=== PATIENT | male | born 1970 | race Caucasian/White ===

== ENCOUNTER 2021-11-19 08:10 | Outpatient (CLI) | payer BC, SELFPAY ==
--- NOTE | ~2021-11-19 | CT_ITS ---
EXAMINATION:CT lung screening DATE: 11/19/2021 09:19 INDICATION: Tobacco use. Current smoker with 60 pack year history. TECHNIQUE: Computed tomography (CT) of the chest was performed without intravenous contrast. Automate d exposure control and iterative reconstruction technique were employed. The dose-length product (DLP ) was 162.79 mGy-cm. COMPARISON: CT abdomen and pelvis 09/28/2017 FINDINGS: There is mild scarring at the lung apices. There is mild emphysema. There is a stable 3 mm nodule in left lower lobe. There are 3 mm and 4 mm nodules in left lower lobe that were not included on prior imaging. There is a 2 mm nodule in left upper lobe. There is a 4 mm nodule in left upper lob e. There is a 3 mm nodule at left major fissure. There is a 2 mm nodule in right middle lobe. There i s a 3 mm nodule in right upper lobe. There are multiple 1-2 mm nodules in the upper lungs. No pleural effusion. The heart size is normal. No pericardial effusion. There is mild bilateral gynecomastia. T here are changes of cholecystectomy. There is mild thoracic spondylosis. There is mild chronic height loss of multiple vertebral bodies. IMPRESSION: 1. Lung-RADS category 2: Benign appearance or behavior. Continue annual screening with noncontrast lo w-dose chest CT in 12 months. Reviewed, dictated and finalized at location A. IMPRESSION: 1. Lung-RADS category 2: Benign appearance or behavior. Continue annual screeni ng with noncontrast low-dose chest CT in 12 months.
--- NOTE | 2021-11-19 12:17 | WPDPFTINT ---
PFT Procedure Performed PFT Procedure Performed Spirometry with Pre/Post Bronchodilator Plethysmography (Lung Vol) Diffusing Cap (DLCO) Flow Vol Loop PFT Interpretation This is a pulmonary function test with pre and post-bronchodilator spirometry, plethysmography and diffusing capacity. The test was performed and results interpreted in accordance with the 2019 and 2005 ATS/ERS Task Force guidelines respectively using the Global Lung Function Initiative-2012 reference equations. Patient demonstrated good effort and cooperation. Reproducibility criteria were met. The quality of the pre bronchodilator spirometry maneuver was Grade B and post bronchodilator spirometry maneuver was Grade A. Findings: Spirometry:The contour the inspiratory expiratory flow tracing are normal. The pre bronchodilator FVC is 5.36 L, 94% predicted. The pre bronchodilator FEV1 is 4.04 L, 91% predicted. The pre bronchodilator FEV1: FVC ratio 75%. The post bronchodilator FVC is 5.40 L, representing 1% increase. The post bronchodilator FEV1 is 4.17 L, representing a 3% increase. The post bronchodilator FEV1: FVC ratio 77%. Plethysmography: The total lung capacity is 7.33 L, 94% predicted. The functional residual capacity is 4.07 L, 101% predicted. The residual volume is 1 point 9 8 L, 88% predicted. New Diffusing capacity: The diffusing capacity unadjusted for hemoglobin and carboxyhemoglobin is 22.9, 71% predicted. The diffusing capacity adjusted for alveolar volume is 3.62, 84% predicted. Impression: The spirometry is normal without evidence of an obstructive abnormality. There is no significant improvement after inhaling a single dose of albuterol. The lung volumes are normal. The diffusing capacity unadjusted for hemoglobin and carboxyhemoglobin is mildly decreased and normalizes when adjusted for alveolar volume. There are no prior studies for comparison
== END 2021-11-19 08:11 | disposition home or self-care (01) ==
PROVIDERS: PCP Family Medicine; Visit Provider Nurse Practitioner Family
DX: Z12.2 Encounter for screening for malignant neoplasm of respiratory organs (principal); J45.909 Unspecified asthma, uncomplicated; F17.210 Nicotine dependence, cigarettes, uncomplicated
CPT/HCPCS: 71271; 94060; 94726; 94729

== ENCOUNTER 2024-11-01 12:54 | Outpatient (CLI) | payer OTHER, SELFPAY ==
--- NOTE | ~2024-11-01 | CT_ITS ---
CT Scan of the Chest without Contrast: Clinical Indication: Lung cancer screening, nicotine dependence Technique: Contiguous sections were acquired throughout the chest without intravenous contrast. Dose reduction technique was used on this scan by utilizing automated exposure control and iterative recon struction technique. The dose-length product (DLP) was 238.08 mGy-cm. COMPARISON: 11/19/2021 Findings: There is no evidence of any significant mediastinal, hilar or axillary lymphadenopathy. The mediastin al soft tissues appear normal. There is no evidence of pleural or pericardial effusion. A few scattered tiny pulmonary nodules unchanged. There is mild emphysema. Images through the upper abdomen reveal no abnormalities. Stable mild compression deformities in the upper thoracic spine. Impression: Lung RADS 2: Benign appearance. 12 month follow-up screening CT advised. Reviewed, dictated and finalized at [facility]. Impression: Lung RADS 2: Benign appearance. 12 month follow-up screening CT advised.
== END 2024-11-01 12:55 | disposition home or self-care (01) ==
LOC: MICIMG 12:55
PROVIDERS: PCP Internal Medicine; Visit Provider Nurse Practitioner Adult Health
DX: Z12.2 Encounter for screening for malignant neoplasm of respiratory organs (principal); Z87.891 Personal history of nicotine dependence
CPT/HCPCS: 71271

== ENCOUNTER 2024-11-21 15:30 | Emergency (ER) | payer OTHER, SELFPAY ==
--- NOTE | ~2024-11-21 | XR_ITS ---
EXAMINATION: XR lumbar spine 2-3V DATE: 11/21/2024 17:05 INDICATION: Back pain TECHNIQUE: Anteroposterior and lateral views of the lumbar spine, and cone-down lateral view of the l umbosacral junction were obtained. COMPARISON: None. FINDINGS: Alignment is normal. Vertebral body heights are normal. Mild disc height loss at T12-L1, L3-L4 and L4 -L5. 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 Cholecystectomy clips in right upper quadrant. IMPRESSION: 1. Mild lumbar and lower thoracic spondylosis. Reviewed, dictated and finalized at location A.
[2024-11-21 15:39] VITALS: BP 105/70; PULSE 86; RESP 20; TEMP 36.8; O2SAT 99
--- OUTSIDE RECORDS SUMMARY | 2024-11-21 16:35 | XMS_ITS | Continuity of Care Document ---
Author Organization [facility] Address [address] [place] [address] [address] [place] [address] Phone Care Team Providers Care Geographic Information Systems Director Name Role Phone [facility] [employer] Unavailable Unavail able Josy Estrada Unavailable Unavailable Advance Directives Directive Yes / No Effective Date File Name No Information Encounters Encounter Description Practice Location Reason(s) For Visit Diagnoses Date Provider Providers Copied on Encounter [facility], [address], [place], [place], [id number], [place] tel:[phone] [facility] No Information 3-[address] [facility]. [address] [facility], [address], [place], [place], [id number] , [place]. tel:[phone] Referring Provider: Jalyn Alvarado, [address], [place], [address]. tel:[phone] g Provider: Josy Estrada, [address] [place] [address], [address]. tel:[phone] Family History Family Member Type Diagnosis Age At Onset No Information Payers Payer name Insurance type Covered alliance party ID Authoriza tion(s) No Information Social History Type Description Quantity Date Captured Comments Sex Male Smoking Status No Information Chief Complaint And Reason For Visit No Information Reason For Referral Reason For Referral No Information History Of Present Illness Encounter Date Complaint History Of Prese nt Illness No Information Functional Status Date Functional Assessmen t No Information Instructions Date Instruction Additional Infor mation No Information Assessments Type Assessment Date No Information Patient Care Teams Name Effective Dates (start - stop) Status Members No Information
--- OUTSIDE RECORDS SUMMARY | 2024-11-21 16:35 | XMS_ITS | Encounter Summary ---
Author Organization [facility] Address [address] [place] [address] Care Team Providers Care Soft Mud Molder Name Role Phone Unavailable Primary Care Provider Unavailabl e Encounter Details Date Type Department Care Team (Late st Contact Info) Description 09/12/[address] 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
--- OUTSIDE RECORDS SUMMARY | 2024-11-21 16:35 | XMS_ITS | Encounter Summary ---
Author Organization [facility] Address [address] [place] [address] Care Team Providers Care Cargo Station Worker Name Role Phone Unavailable Primary Care Provider Unavailabl e Encounter Details Date Type Department Care Team (Late st Contact Info) Description 09/17/2005 Outpatient Historical [facility] [address] [facility] [address] [place] [phone] Adolfo Rowe MD [address] 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
--- OUTSIDE RECORDS SUMMARY | 2024-11-21 16:35 | XMS_ITS | Clinical Summary ---
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
--- OUTSIDE RECORDS SUMMARY | 2024-11-21 16:35 | XMS_ITS | Encounter Summary ---
Author Organization [facility] Address [address] [place] [address] Care Team Providers Care Paddle Dyeing Machine Operator Name Role Phone Unavailable Primary Care Provider Unavailabl e Encounter Details Date Type Department Care Team (Late st Contact Info) Description 09/11/2005 Outpatient Historical [facility] [address] [facility] [address] [place] [phone] Alvaro Montes MD [address] 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
--- OUTSIDE RECORDS SUMMARY | 2024-11-21 16:35 | XMS_ITS | Encounter Summary ---
Author Organization [facility] Address [address] [place] [address] Care Team Providers Care Termite Treater Helper Name Role Phone Unavailable Primary Care Provider Unavailabl e Encounter Details Date Type Department Care Team (Late st Contact Info) Description 09/24/2005 Outpatient Historical [facility] [address] [facility] [address] [place] [phone] Adolfo Rowe MD [address] 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
--- OUTSIDE RECORDS SUMMARY | 2024-11-21 16:35 | XMS_ITS | Continuity of Care Document ---
Author Organization [facility] Address [address] [place] [address] Phone Care Team Providers Care Security Systems Specialist Name Role Phone Administrative, Provider Unavailable Unavail able Allergies, Adverse Reactions, Alerts Substance Reaction Status Criticality No Known Drug Allergies Active No I nformation Procedures Procedure Date Medical Record Copy Medical Record Copy Per Page Supplemental Report Office/outpatient visit,est, mod 2016 X-ray exam Cervical 3 Views Or Less X-ray exam of thoracic 2 views 17 Office/outpatient visit,[facility], [facility] 2016 Advance Directives Directive Yes / No Effective Date File Name No Information Encounters Encounter Description Practice Location Reason(s) For Visit Diagnoses Date Provider Providers Copied on Encounter [facility], [address] [place] [address], [id number], [place] tel:[phone] [email or web address] No Information 8 Administrati ve Provider. [address] [place] [address], [facility] [address], [place], [place], [id number], [place]. tel:[phone] Office/outpa tient visit,est, mod [facility], [address] [place] [address], [id number], tel:[phone] [employer] [facility] Follow Up of cervical & thoracic (chief complaint) Sprain of ligaments of cervical spine, subsequent encounterSprai n of ligaments of thoracic spine, subsequent encounterContu leia of right knee, subsequent encounter Sep-2 Baljeet Bojorquez. [address] [facility], [place], [place], [id number], [place]. tel:[phone] Office/outpa tient visit,new, [facility], [address], [place], [place], [id number], [place] tel:[phone] [facility] Cervical Thoracic (chief complaint) CervicalgiaPai n in thoracic spineSprain of ligaments of cervical spine, initial encounterHeada cheSprain of ligaments of thoracic spine, initial encounterContu leia of right knee, initial encounter Sep-0 Baljeet Bojorquez. [address] [facility], [address], [place], [place], [id number], [place]. tel:[phone] Family History Family Member Type Diagnosis Age At Onset Father Problem (finding) stroke Payers Payer name Insurance type Covered constitution party ID Authoriza tion(s) No Information Social History Type Description Quantity Date Captured Comments Sex Male Smoking Status No Information Chief Complaint And Reason For Visit No Information Reason For Referral Reason For Referral No Information Plan Of Treatment Date Type Action Status Referral Ordered: CT scan thoracic spine WO Contrast Appointment date/timeframe: 04/29/2017 ordered Referral Ordered: X-ray exam of thoracic 2 views ordered Referral Ordered: X-ray exam Cervical 3 Views Or Less ordered History Of Present Illness Encounter Date Complaint History Of Prese nt Illness Follow Up of cervical & thoracic Cervical Thoracic patient compla ins of cervical and thoracic pain Functional Status Date Functional Assessmen t No Information Instructions Date Instruction Additional Infor mation No Information Assessments Type Assessment Date No Information Patient Care Teams Name Effective Dates (start - stop) Status Members No Information
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
--- OUTSIDE RECORDS SUMMARY | 2024-11-21 16:35 | XMS_ITS | Encounter Summary ---
Author Organization [facility] Address [address] [place] [address] Care Team Providers Care Shell Grader Name Role Phone Unavailable Primary Care Provider Unavailabl e Encounter Details Date Type Department Care Team (Late st Contact Info) Description 09/10/[address] [facility] [address] 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
--- OUTSIDE RECORDS SUMMARY | 2024-11-21 16:36 | XMS_ITS | Clinical Summary ---
Author Organization [facility] Address [address] [place] [address] Phone Care Team Providers Care Teacher Selection Specialist Name Role Phone Orlando Stokes MD Primary Care Provider [phone] Lencho Luis MD Unavailable Allergies No known active allergies Medications albuterol 108 (90 Base) MCG/ACT Aerosol Solution 2 PUFFS EVERY 4 TO 6 HRS NEEDED 5 Active amLODIPine (NORVASC) 10 MG Tablet Take 10 mg by mouth daily. 5 Active atorvastatin (LIPITOR) 20 MG Tablet Take 20 mg by mouth daily. 5 Active diclofenac (VOLTAREN) 75 MG Tablet Delayed Response Take 75 mg by mouth 2 times daily. 5 Active Trelegy Ellipta 100-62.5-25 MCG/ACT AEROSOL POWDER, BREATH ACTIVATED INHALE 1 PUFF BY INHALATION ROUTE DAILY 5 Active primidone (MYSOLINE) 50 MG Tablet Take 50 mg by mouth 2 times daily. 5 Active sertraline (ZOLOFT) 100 MG Tablet Take 100 mg by mouth daily. 5 Active sildenafil citrate (VIAGRA) 100 MG Tablet TAKE 1 TABLET BY MOUTH 1 HOUR BEFORE NEEDED (MAX 1 TABLET DAILY) 5 Active traMADol (ULTRAM) 50 MG Tablet Take 50 mg by mouth 3 times daily. 5 Active TraMADol HCl 200 MG TABLET SR 24 HR Take 1 Tablet by mouth daily. 5 Active testosterone cypionate (DEPO-TESTOSTER ONE) 200 MG/ML Solution Active tamsulosin (FLOMAX) 0.4 MG Capsule Take 1 Capsule by mouth daily. 30 Capsule 3 5 Active Encounters Date Type Department Care Team Description 11/02/2024 3:00 PM CDT Office Visit [facility] [address] [place] [address] Lencho Luis MD Benign prostatic hyperplasia with urinary hesitancy (Primary Dx); Peyronie's disease Discharge Disposition: Discharged to home or Selfcare 11/02/2024 Travel 09/25/2024 Transcribe Orders [facility] Scheduling [address] [place] [address] Orlando Stokes MD Tobacco abuse (Primary Dx) from Last 3 Months Immunizations Immunization Administration Dates Next Due Covid-19, Mrna, Lnp-s, Pf, 30 Mcg/0.3 Ml Dose (P fizer) 06/03/2021 Influenza Vaccine, Quadrivalent, PF 05/20/2022 TDAP Vaccine 05/16/2015 Social History Tobacco Use Types Packs/Day Years Used Date Smoking Tobacco: Former Cigarettes Smokeless Tobacco: Never Tobacco Cessation:Counseling Given: Not Answered Alcohol Use Standard Drinks/Week Comments Yes 0 (1 standard drink = 0.6 oz pur e alcohol) Rare Sexually Active Control Partners Comments Not Currently Sex and Gender Information Value Date Recorded Sex Assigned at Not on file Legal Sex Male 9:48 PM CDT Gender Identity Not on file Sexual Orientation Not on file Last Filed Vital Signs Vital Sign Reading Time Taken Comments Blood Pressure 123/80 11/02/2024 3:06 PM CDT Pulse 94 11/02/2024 3:06 PM CDT Temperature - - Respiratory Rate 16 11/02/2024 3:06 PM CDT Oxygen Saturation 97% 11/02/2024 3:06 PM CDT Inhaled Oxygen Concentration - - Weight 100.2 kg (221 lb) 11/02/2024 3:06 PM CDT Height 188 cm (6' 2 ) 11/02/2024 3:06 PM CDT Body Mass Index 28.37 11/02/2024 3:06 PM CDT Plan of Treatment Upcoming Encounters Date Type Department Care Team (Late st Contact Info) Description 12/07/2024 2:00 PM CDT Telemedicine [facility] [address] [place] [address] Lencho Luis MD [address] [place] [address] Health Maintenance Due Date Last Done Comments Hepatitis C Virus (HCV) Screening 1970 Hepatitis B Immunization (1 of 3 - 19+ 3-dose series) 11/15/1990 Colonoscopy 11/15/2016 Colorectal Cancer Screening 11/15/2016 Cologuard 11/15/2021 Immunochemical Fecal Occult Blood 11/15/2021 Pneumococcal Immunization (50+ years) (1 of 1 - PCV) 11/15/2021 Zoster Immunization (1 of 2) 11/15/2021 Influenza Immunization (#1) 2024 05/20/2022 SARS-COV-2 Immunization ( - season) 2024 05/20/2022, 01/01/2022, 06/03/2021, Additional history exists Td Immunization Every 10 Years (Adults With 1 Tdap) 05/16/2025 05/16/2015 Respiratory Syncytial Virus (RSV) Immunization (Adult) (1 - 1-dose 75+ series) 11/15/2046 TdaP Immunization Discontinued 05/16/2015 Meningococcal Immunization (ACWY) Aged Out No longer eligible based on patient's age to complete this topic Rotavirus Immunization Aged Out No lo nger eligible based on patient's age to complete this topic Insurance [facility] Care Teams Teacher Selection Specialist Relationship Specialty Start Date End Date Orlando Stokes MD [address] [place] [address] PCP - General Internal Medicine 11/02/24 Lencho Luis MD [address] [address] Consulting Physician Urology 11/02/24
--- OUTSIDE RECORDS SUMMARY | 2024-11-21 16:46 | XMS_ITS | Continuity of Care Document ---
Author Organization [facility] Address [address] [place] [address] Phone Care Team Providers Care Umbrella Mender Name Role Phone Administrative, Provider Unavailable Unavail able Allergies, Adverse Reactions, Alerts Substance Reaction Status Criticality No Known Drug Allergies Active No I nformation Procedures Procedure Date Medical Record Copy Medical Record Copy Per Page Supplemental Report Office/outpatient visit,est, mod 2016 X-ray exam Cervical 3 Views Or Less X-ray exam of thoracic 2 views 17 Office/outpatient visit,[facility], [facility] [place] Advance Directives Directive Yes / No Effective Date File Name No Information Encounters Encounter Description Practice Location Reason(s) For Visit Diagnoses Date Provider Providers Copied on Encounter [facility], [address] [place] [address], [id number], [place] tel:[phone] [employer] No Information 8 Administrati ve Provider. [address] [place] [address], [facility], [place], [place], [id number], [place]. tel:[phone] Office/outpa tient visit,est, mod [facility], [address] [place] [address], [id number], tel:[phone] [facility] Follow Up of cervical & thoracic (chief complaint) Sprain of ligaments of cervical spine, subsequent encounterSprai n of ligaments of thoracic spine, subsequent encounterContu leia of right knee, subsequent encounter Sep-2 Baljeet Bojorquez. [address] [facility], [address], [place], [place], [id number], [place]. tel:[phone] Office/outpa [place]ient visit,new, [facility], [address], [place], [place], [id number], [place] tel:[phone] [facility] Cervical Thoracic (chief complaint) CervicalgiaPai n in thoracic spineSprain of ligaments of cervical spine, initial encounterHeada cheSprain of ligaments of thoracic spine, initial encounterContu leia of right knee, initial encounter Sep-0 Baljeet Bojorquez. [address] [facility], [address], [place], [place], [id number], [place]. tel:[phone] Family History Family Member Type Diagnosis Age At Onset Father Problem (finding) stroke Payers Payer name Insurance type Covered republican ID Authoriza tion(s) No Information Social History [...]
--- OUTSIDE RECORDS SUMMARY | 2024-11-21 16:46 | XMS_ITS | Continuity of Care Document ---
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 [address] [facility], [address], [place], [place], [id number] , [place]. tel:[phone] Referring Provider: Jalyn Alvarado, [address], [place], [address]. tel:[phone] g Provider: Josy Estrada, [address] [place] [address], [address]. tel:[phone] Family History Family Member Type Diagnosis Age [...]
--- NOTE | 2024-11-21 16:58 | ED.GENADULT ---
HPI - General Adult General Chief complaint: Back Pain/Injury Stated complaint: BACK PAIN Time Seen by Provider: 11/21/24 16:02 History of Present Illness HPI narrative: 54-year-old male presenting to the emergency department for evaluation for acute lower back pain. Patient does have a prior history of thoracic back pain secondary to a work injury. Patient states this morning he was putting on his boots when he felt a pop in his lower back. Patient describes pain in the thoracic spine that does not radiate to his legs. Patient denies any loss of bowel bladder control. Patient denies any numbness or weakness of lower extremities. Patient did take tramadol for chronic pain this morning and did get 8 of IV morphine by EMS. Related Data Home Medications ?Medication ?Instructions ?Recorded ?Confirmed ?Last Taken ?Type fluticasone fur. 100 mcg-umeclid 1 inh inhalation DAILY 09/20/22 06/22/23 Unknown History 62.5 mcg-vilant 25 mcg inhalat.powder (Trelegy Ellipta) sertraline 100 mg tablet 100 mg PO DAILY 06/22/23 06/22/23 Unknown History Allergies Allergy/AdvReac Type Severity Reaction Status Date / Time No Known Allergies Allergy Verified 11/21/24 16:14 Review of Systems Review of Systems: All systems reviewed & are unremarkable except as noted in HPI and below PMFSH Past Medical History Medical History Asthma Bilateral conjunctivitis 03/04/2016 Bursitis of left elbow 04/06/2016 Chronic back pain Chronic dermatitis Left side of corner of mouth - 04/28/2017 DJD of shoulder Dyslipidemia Erectile dysfunction Erythema of forearm left arm - 2015 Essential (primary) hypertension Lumbar pain 2013 - right upper area Microscopic hematuria 2012 Right shoulder pain Vitamin D deficiency Surgical History Surgical History History of appendectomy 1982 History of carpal tunnel release of both wrists 2004 History of cholecystectomy 2015 History of cystoscopy History of elbow surgery left 1987 History of right knee surgery 2017 History of shoulder surgery b/l -2005 Family History Family History Father Family history of coronary artery disease Other Cerebrovascular accident Diabetes mellitus Family history of malignant neoplasm Social History Social History Smoking packs per day: 1.5 Smoking cigarettes per day: 30.0 Years smoked: 40 Smoking pack-years: 60.00 Smoking status: Current every day smoker Tobacco type: cigarettes Additional smoking assessment comments: smokes 1 pack a day Alcohol intake: current Alcohol use details: consumes 12 beers monthly Substance use: never Substance use type: does not use Lack of Transportation: No Lack of Food: Never True Current Housing: I Have Housing Concerned About Future Housing: No Difficulty Paying Gas/Electric Bills: No Difficulty Paying for Meds: No Currently Unemployed: No Difficulty w/ Childcare or Family Care: No Living arrangements: alone Occupation/Education: occupation Additional occupation/education comments: 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 EYES: PERRLA/EOMI, conjunctivae clear. NOSE: Normal no drainage EARS:TMS clear with good light reflex. THROAT: Pharynx clear, no exudate. NECK: Supple. No adenopathy, no masses. RESPIRATORY: Airway patent, respirations nonlabored. Clear to auscultation bilaterally, no rales, rhonchi, wheezing. CARDIOVASCULAR: Regular rate and rhythm without murmurs rubs or gallops. ABDOMINAL: Soft, nontender, nondistended, normal bowel sounds MUSCULOSKELETAL: No deformity or step-off of lumbar spine, mild midline tenderness to palpation, additional paraspinal muscular tenderness to palpation NEURO: Alert. Cranial nerves II through XII intact. Good gait. Good coordination SKIN: Warm, dry. Normal Color Course Vital Signs Vital signs: Vital Signs Temperature 98.3 F 11/21/24 15:39 Pulse Rate 86 11/21/24 15:39 Respiratory Rate 20 11/21/24 15:39 Blood Pressure 105/70 11/21/24 15:39 Pulse Oximetry 99 11/21/24 15:39 Oxygen Delivery Room Air 11/21/24 15:39 Temperature 98.3 F 11/21/24 15:39 Pulse Rate 95 11/21/24 17:53 Respiratory Rate 20 11/21/24 17:53 Blood Pressure 117/74 11/21/24 17:53 Pulse Oximetry 100 11/21/24 17:53 Oxygen Delivery Room Air 11/21/24 15:39 Medical Decision Making MDM Narrative Medical decision making narrative: 54-year-old male presents to the emergency department for evaluation for acute lower back pain. Patient is neurologically intact with no associated numbness or weakness. X-ray shows no acute fracture dislocation. Patient was treated with p.o. [place], IV Toradol and p.o. Flexeril. Patient will be discharged home with p.o. [place], p.o. naproxen and p.o. Flexeril. Differential Diagnosis Differential Diagnosis: Muscular strain, compression fracture, transverse process fracture Vital Signs Vital Signs: Vital Signs Temperature 98.3 F 11/21/24 15:39 Pulse Rate 86 11/21/24 15:39 Respiratory Rate 20 11/21/24 15:39 Blood Pressure 105/70 11/21/24 15:39 Pulse Oximetry 99 11/21/24 15:39 Oxygen Delivery Room Air 11/21/24 15:39 Temperature 98.3 F 11/21/24 15:39 Pulse Rate 95 11/21/24 17:53 Respiratory Rate 20 11/21/24 17:53 Blood Pressure 117/74 11/21/24 17:53 Pulse Oximetry 100 11/21/24 17:53 Oxygen Delivery Room Air 11/21/24 15:39 Discharge Plan Discharge Clinical Impression: Back pain Patient Disposition: Home, Self-Care Condition: Stable Instructions: Antibiotic Form, Low Back Strain (ED) Additional Instructions: Naproxen as directed for pain control. Flexeril for muscle spasm. [place] as needed for additional pain control. Close follow-up with your primary care physician. Patient Language: [place] Island[place] Prescriptions: New naproxen 500 mg tablet 500 mg PO BID 7 Days Qty: 14 0RF cyclobenzaprine 10 mg tablet 10 mg PO BID PRN (Reason: muscle spasm) Qty: 14 0RF hydrocodone-acetaminophen 5-325 mg tablet 1 tablet PO Q12H PRN (Reason: pain) Qty: 14 0RF No Action Trelegy Ellipta 100-62.5-25 mcg blister with device 1 inh inhalation DAILY albuterol sulfate 90 mcg/actuation HFA aerosol inhaler 2 inh inhalation Q4-6H PRN (Reason: shortness of breath or wheezing) Qty: 3 1RF sildenafil 100 mg tablet 100 mg PO DAILY PRN (Reason: sexual activity) Qty: 18 1RF Rx Instructions: administer 30 minutes to 4 hours before activity amlodipine 10 mg tablet 10 mg PO DAILY Qty: 90 1RF atorvastatin 20 mg tablet 20 mg PO QHS Qty: 90 1RF primidone 50 mg tablet 50 mg PO QHS Qty: 90 1RF tramadol 50 mg tablet 50 mg PO BID PRN (Reason: pain) Qty: 180 0RF tramadol 200 mg tablet, ER multiphase 24 hr 200 mg PO DAILY Qty: 90 0RF sertraline 100 mg tablet 100 mg PO DAILY Follow-up/Referrals: Kike,Felice Echeverria MD [Primary Care Provider] -
[2024-11-21] MEDS: HYDROcodone/acetaminophen (*CRX) 7.5-325 MG TABLET 1 TAB PO (17:11)
[2024-11-21] MEDS: CYCLOBENZAPRINE HCL 10 MG TABLET PO (17:12)
[2024-11-21] MEDS: KETOROLAC 30 MG/ML VIAL (*BKC) IV PUSH (17:13)
[2024-11-21 17:53] VITALS: BP 117/74; PULSE 95; RESP 20; O2SAT 100
== END 2024-11-21 17:55 | disposition home or self-care (01) ==
PROVIDERS: Emergency Provider Emergency Medicine; PCP Internal Medicine
DX: M54.50 Low back pain, unspecified (principal); F17.210 Nicotine dependence, cigarettes, uncomplicated
CPT/HCPCS: 72100; 96374; 99284; A9270; J1885